=== PATIENT | male | born 1950 | race Caucasian/White ===

== ENCOUNTER 2021-03-06 21:34 | Observation (INO) ==
[2021-03-06] MEDS: Nitroglycerin 0.4 MG TAB.SUBL SL PRN ×2 (22:21→22:42)
[2021-03-06 22:27] LABS: Basophils # 0.1 K/mcL (0.0-0.2); Basophils % 0.6 %; Eosinophils # 0.2 K/mcL (0.0-0.6); Eosinophils % 1.8 %; Hematocrit 41.6 % (37.5-50.1); Hemoglobin 13.3 g/dL (12.9-16.9); Immature Granulocytes % 0.5 % (0-4); Lymphocytes # 1.7 K/mcL (0.6-4.6); Lymphocytes % 18.8 %; Mean Corpuscular Hemoglobin 29.6 pg (28.0-33.3); Mean Corpuscular Volume 92.7 fL (83.0-100.0); Mean Platelet Volume 9.5 fL (9.4-12.4); Monocytes % 10.9 %; Platelet Count 208 K/mcL (140-400); Red Blood Count 4.49 M/mcL (4.19-5.50); Red Cell Distribution Width 15.9 % (11.5-14.5); Segmented Neutrophils % 67.4 %; White Blood Count 8.9 K/mcL (4.3-11.1)
[2021-03-06 22:37] LABS: Activated Partial Thrombo Time 28.6 Seconds (26.0-36.0)
[2021-03-06 22:49] LABS: Alanine Aminotransferase 18 Units/L (7-52); Albumin 3.9 g/dL (3.5-5.7); Albumin/Globulin Ratio 1.5 (1.1-2.2); Alkaline Phosphatase 104 Units/L (34-104); Aspartate Amino Transferase 14 Units/L (13-39); BUN/Creatinine Ratio 16 (6-26); Bilirubin,Direct 0.1 mg/dL (0.0-0.2); Bilirubin,Indirect 0.3 mg/dL (0.0-1.0); Bilirubin,Total 0.4 mg/dL (0.3-1.0); Blood Urea Nitrogen 23 mg/dL (8-23); Calcium 8.6 mg/dL (8.6-10.3); Carbon Dioxide 28 mEq/L (23-29); Chloride 104 mEq/L (98-107); Globulin 2.6 g/dL (2.4-3.5); Glucose 196 mg/dL (70-105); Lipase 35 Units/L (11-82); Osmolality,Calculated 299 (280-300); Sodium 140 mEq/L (136-145); Total Protein 6.5 g/dL (6.4-8.9); Troponin I < 0.03 ng/mL (< 0.04); eGFR For African Americans > 60 (> 60); eGFR For Non-African Americans 50 (> 60)
[2021-03-06] MEDS ORDERED: *HR* Heparin 5,000 UNIT/ML VIAL IVP ONE (23:43)
[2021-03-06] MEDS ORDERED: *HR* Heparin 5,000 UNIT/ML VIAL IVP PRN ×2 (23:43)
[2021-03-06] MEDS ORDERED: Heparin 25,000UNIT/250ML 1/2NS 25,000 UNIT/250 ML IV.SOLN IVC SCH (23:45)
[2021-03-07] MEDS ORDERED: Aspirin 81 MG TAB.CHEW PO STA (00:09)
[2021-03-07] MEDS ORDERED: Aspirin 81 MG TAB.CHEW ONE (00:35)
[2021-03-07] MEDS ORDERED: 0.9 % Sodium Chloride 1,000 ML IVC SCH (01:30)
[2021-03-07] MEDS ORDERED: Naloxone 0.4 MG/ML INJ IVP PRN (01:30)
[2021-03-07] MEDS ORDERED: Ondansetron 4 MG/2 ML VIAL IVP PRN (01:30)
[2021-03-07] MEDS ORDERED: *HR* Dextrose 50 % in Water (Vial) 50 ML VIAL IVP PRN (02:53)
[2021-03-07] MEDS ORDERED: Dextrose Gel 15 GM/37.5 ML TUBE PO PRN ×2 (02:53)
[2021-03-07] MEDS ORDERED: D5% in Water 1,000 ML IVC PRN (02:53)
[2021-03-07] MEDS ORDERED: Perflutren Lipid Microsphere 1.3 ML in 0.9 % Sodium Chloride 8.7 ML IVP PRN (03:01)
[2021-03-07 05:05] LABS: Hematocrit 38.6 % (37.5-50.1); Hemoglobin 12.1 g/dL (12.9-16.9); Mean Corpuscular HGB Conc 31.3 g/dL (31.6-35.5); Mean Corpuscular Hemoglobin 29.3 pg (28.0-33.3); Mean Corpuscular Volume 93.5 fL (83.0-100.0); Mean Platelet Volume 9.4 fL (9.4-12.4); Platelet Count 190 K/mcL (140-400); Red Blood Count 4.13 M/mcL (4.19-5.50); Red Cell Distribution Width 15.9 % (11.5-14.5); White Blood Count 7.4 K/mcL (4.3-11.1)
[2021-03-07 05:22] LABS: BUN/Creatinine Ratio 17 (6-26); Blood Urea Nitrogen 23 mg/dL (8-23); Calcium 8.3 mg/dL (8.6-10.3); Carbon Dioxide 29 mEq/L (23-29); Chloride 107 mEq/L (98-107); Glucose 133 mg/dL (70-105); Osmolality,Calculated 300 (280-300); Potassium 3.9 mEq/L (3.5-5.1); Sodium 142 mEq/L (136-145); eGFR For African Americans > 60 (> 60); eGFR For Non-African Americans 53 (> 60)
[2021-03-07] MEDS: Insulin LISPRO 300 UNITS/3 ML VIAL SUBQ SCH ×3 (05:52→18:53)
[2021-03-07] MEDS: Aspirin 81 MG TAB.CHEW PO SCH (08:33)
[2021-03-07] MEDS ORDERED: Ipratropium/Albuterol Neb 3 ML IH PRN (08:36)
[2021-03-07] MEDS ORDERED: Furosemide 20 MG TABLET PO ONE (10:10)
[2021-03-07 10:29] LABS: Adenovirus Not Detected (Not Detect); Coronavirus 229E Not Detected (Not Detect); Coronavirus HKU1 Not Detected (Not Detect); Coronavirus NL63 Not Detected (Not Detect); Coronavirus OC43 Not Detected (Not Detect); Human Metapneumovirus Not Detected (Not Detect); Human Rhinovirus/Enterovirus Not Detected (Not Detect); Influenza A Subtype 2009 H1 Not Detected (Not Detect); SARS-CoV-2 Not Detected (Not Detect)
[2021-03-07 10:30] LABS: Bordetella Pertussis Not Detected (Not Detect); Chlamydophila pneumoniae Not Detected (Not Detect); Influenza B Not Detected (Not Detect); Mycoplasma pneumoniae Not Detected (Not Detect); Parainfluenza Virus 1 Not Detected (Not Detect); Parainfluenza Virus 2 Not Detected (Not Detect); Parainfluenza Virus 3 Not Detected (Not Detect); Parainfluenza Virus 4 Not Detected (Not Detect); Respiratory Syncytial Virus Not Detected (Not Detect)
[2021-03-07] MEDS: Ipratropium/Albuterol Neb 3 ML IH SCH ×3 (10:36→21:51)
[2021-03-07] MEDS: Acetaminophen 325 MG TABLET PO PRN ×2 (10:50→16:28)
[2021-03-07] MEDS: Isosorbide MONOnitrate (24 HR) 30 MG TAB.ER.24H PO SCH (10:51)
[2021-03-07] MEDS: predniSONE 20 MG TABLET PO SCH (12:36)
[2021-03-07] MEDS: Gabapentin 300 MG CAPSULE PO SCH (20:49)
[2021-03-07] MEDS ORDERED: Melatonin 3 MG TABLET PO SCH (21:00)
[2021-03-07] MEDS: Budesonide/Formoterol 160/4.5 1 PUFF INH IH SCH (21:51)
[2021-03-08] MEDS: Insulin LISPRO 300 UNITS/3 ML VIAL SUBQ SCH ×3 (00:38→12:33)
[2021-03-08] MEDS: Ipratropium/Albuterol Neb 3 ML IH SCH ×2 (04:15→09:35)
[2021-03-08] MEDS: Gabapentin 300 MG CAPSULE PO SCH (08:15)
[2021-03-08] MEDS: Aspirin 81 MG TAB.CHEW PO SCH (08:15)
[2021-03-08] MEDS: predniSONE 20 MG TABLET PO SCH (08:15)
[2021-03-08] MEDS: Isosorbide MONOnitrate (24 HR) 30 MG TAB.ER.24H PO SCH (08:15)
[2021-03-08 08:18] LABS: Hematocrit 39.4 % (37.5-50.1); Hemoglobin 13.2 g/dL (12.9-16.9); Mean Corpuscular HGB Conc 33.5 g/dL (31.6-35.5); Mean Corpuscular Hemoglobin 30.6 pg (28.0-33.3); Mean Corpuscular Volume 91.2 fL (83.0-100.0); Mean Platelet Volume 9.8 fL (9.4-12.4); Platelet Count 198 K/mcL (140-400); Red Blood Count 4.32 M/mcL (4.19-5.50); Red Cell Distribution Width 15.5 % (11.5-14.5); White Blood Count 12.6 K/mcL (4.3-11.1)
[2021-03-08 08:37] LABS: BUN/Creatinine Ratio 18 (6-26); Blood Urea Nitrogen 20 mg/dL (8-23); Calcium 8.7 mg/dL (8.6-10.3); Carbon Dioxide 26 mEq/L (23-29); Chloride 107 mEq/L (98-107); Glucose 124 mg/dL (70-105); Osmolality,Calculated 292 (280-300); Sodium 139 mEq/L (136-145); eGFR For African Americans > 60 (> 60); eGFR For Non-African Americans > 60 (> 60)
[2021-03-08] MEDS ORDERED: Multivit/Ca/Min/Fe/FA 1 TAB TABLET PO SCH (09:00)
[2021-03-08] MEDS ORDERED: Ascorbic Acid 500 MG TABLET PO SCH (09:00)
[2021-03-08] MEDS ORDERED: Cholecalciferol (D-3) 1,000 UNIT (25MCG) TABLET PO SCH (09:00)
[2021-03-08] MEDS: Budesonide/Formoterol 160/4.5 1 PUFF INH IH SCH (09:35)
[2021-03-08 11:43] VITALS: BP 147/78; PULSE 71; TEMP 97.6; O2SAT 91
== END 2021-03-08 14:21 | disposition home or self-care (01) ==
LOC: EMEROOARM 21:34 → 3BNU 21:34 → SUATTDRO 03-07 00:21 → 3BNU 03-07 00:55
PROVIDERS: ADMIT Internal Medicine; ATTEND Internal Medicine